=== PATIENT | male | born 1980 | race Two or more races ===

== ENCOUNTER 2019-03-20 07:31 | Emergency (ER) | payer SELFPAY ==
[~2019-03-20] VITALS: Ht 165.1 cm; Wt 73.4 kg
[2019-03-20 07:35] VITALS: BP 113/86
--- NOTE | 2019-03-20 08:14 | NUR ---
TO [facility] FROM [facility]
--- NOTE | 2019-03-20 08:20 | NUR ---
first contact with pt. pt states "My back has been killing me for the past week. It was just all of the sudden. I get numb right here (right shoulder)." Pt denies current or past back injury or trauma. Pt denies loss of bowel or bladder control. pt's aox4. resps even and unlabored.
[2019-03-20] MEDS ORDERED: DIAZEPAM 5 MG TABLET PO ONE (08:30)
[2019-03-20] MEDS ORDERED: KETOROLAC 30 MG/1 ML IM ONE (08:30)
[2019-03-20] MEDS ORDERED: DIAZEPAM 5 MG TABLET ONE (08:36)
[2019-03-20] MEDS ORDERED: KETOROLAC 30 MG/1 ML ONE (08:36)
--- NOTE | 2019-03-20 08:40 | NUR ---
PT TO XRAY AT THIS TIME.
--- NOTE | 2019-03-20 08:40 | NUR ---
PT MEDICATED PER EMAR. PT TOLERATED WELL.
== END 2019-03-20 09:53 | disposition home or self-care (01) ==
LOC: ED 09:45
DX: S29.012A Strain of muscle and tendon of back wall of thorax, initial encounter (principal); X58.XXXA Exposure to other specified factors, initial encounter; Y93.89 Activity, other specified; Y92.89 Other specified places as the place of occurrence of the external cause; Y99.8 Other external cause status
CPT/HCPCS: 72072; 96372; 99283; J1885

== ENCOUNTER 2019-04-18 22:19 | Emergency (ER) | payer OTHER ==
[~2019-04-18] VITALS: Ht 167.6 cm; Wt 74.2 kg
[2019-04-18 22:23] VITALS: BP 114/65
--- NOTE | 2019-04-18 23:38 | NUR ---
PT TOLD SHIP BOSS HE HAD ABD PAIN FOR 4 DAYS THEN WHEN ASKED AGIAN PT DENIED ABD PAIN AND CHANGED PAIN TO RIGHT SHOULDER FOR THE LAST 2 WEEKS?
[2019-04-18] MEDS ORDERED: KETOROLAC 30 MG/1 ML ONE (23:46)
[2019-04-19] MEDS ORDERED: KETOROLAC 30 MG/1 ML IM ONE
== END 2019-04-19 00:52 | disposition home or self-care (01) ==
LOC: ED 04-19 00:20
DX: S16.1XXA Strain of muscle, fascia and tendon at neck level, initial encounter (principal); M79.621 Pain in right upper arm; Z72.9 Problem related to lifestyle, unspecified; F17.210 Nicotine dependence, cigarettes, uncomplicated; W11.XXXA Fall on and from ladder, initial encounter; Y93.89 Activity, other specified; Y92.89 Other specified places as the place of occurrence of the external cause; Y99.8 Other external cause status
CPT/HCPCS: 72125; 93005; 96372; 99284; J1885